=== PATIENT | female | born 1955 | race Caucasian/White ===

== ENCOUNTER 2017-09-02 16:35 | Emergency (ER) | payer SELFPAY ==
[~2017-09-02 16:35] MED LIST: CITA-48 PO; CYAN1000P SQ; CYCL1PAK PO; HYDR-3129 PO; LISI-363 PO; NEUR300C PO; TEMA15 PO; VITA400D PO
[2017-09-02 16:38] VITALS: BP 150/71; PULSE 83; RESP 14; TEMP 98.4; O2SAT 97
[2017-09-02 18:13] LABS: AUTOMATED NEUTROPHIL # 7.3 TH/MM3 (1.8-7.7); BASOPHIL # 0.1 TH/MM3 (0-0.2); EOSINOPHIL # 0.2 TH/MM3 (0-0.4); EOSINOPHIL % 1.9 % (0.0-4.0); HEMATOCRIT 41.9 % (35.0-46.0); HEMO FLAGS DIFF FINAL; LYMPH % 25.6 % (9.0-44.0); LYMPHOCYTE # 2.9 TH/MM3 (1.0-4.8); MEAN CELL VOLUME 89.3 FL (80.0-100.0); MEAN CORPUSCULAR HEMOGLOBIN 30.1 PG (27.0-34.0); MEAN CORPUSCULAR HGB CONC 33.7 % (32.0-36.0); MONO % 5.9 % (0.0-8.0); NEUT % 65.6 % (16.0-70.0); PLATELET COUNT 275 TH/MM3 (150-450); RED CELL DISTRIBUTION WIDTH 14.1 % (11.6-17.2); WHITE BLOOD COUNT 11.2 TH/MM3 (4.0-11.0)
[2017-09-02 18:19] LABS: BLOOD, URINE NEG (NEG); GLUCOSE,URINE NEG (NEG); KETONE, URINE NEG (NEG); NITRITE,URINE NEG (NEG); URINE COLOR LIGHT-YELLOW (YELLW/STRAW)
[2017-09-02 18:21] LABS: COMMENT (UR) CULT NOT INDICATED; CULTURE IF INDICATED CULT NOT INDICATED
[2017-09-02 18:23] LABS: ANION GAP 4 MEQ/L (5-15); BICARBONATE 31.7 MEQ/L (21.0-32.0); BLOOD UREA NITROGEN 8 MG/DL (7-18); CHLORIDE 95 MEQ/L (98-107); GLOMERULAR FILTRATION RATE 84 ML/MIN (>89); SODIUM (NA) 131 MEQ/L (136-145)
[2017-09-02 18:24] LABS: ALCOHOL LESS THAN 3 MG/DL (0-5)
--- NOTE | 2017-09-02 19:34 | PD ---
HPI Chief Complaint: Depression Time Seen by Provider: 19:33 Travel History International Travel<30 days: No Contact w/Intl Traveler<30days: No Traveled to known affect area: No History of Present Illness HPI 61-year-old female presents to the emergency department for complaint of worsening depression over the past 3 weeks. She takes Citalopram for her depression and has been compliant. She's been following with her primary care provider in regards to having thoughts of wanting to and he wanted to wean her off the Citalopram and put her on a different medication, but she had worsening of symptoms. She saw her primary care provider today and he recommended for her to be [place] acted ordered to voluntarily come to the ER for psych evaluation. Reports not having thoughts of wanting to kill herself, but is just really depressed and has thoughts of not wanting to live. She does not have a plan. Nadiya has no history of suicide attempt. She denies homicidal ideations. Denies visual or auditory hallucinations. Reports occasional marijuana use. Denies alcohol use. Reports insomnia and decreased appetite. Depression is worse in the mornings because she is alone while her is at work. No known relieving factors. Primary care provider is Dr. Thompson. She has followup appointment with psychiatrist scheduled October 02. Has no emergent medical complaints. Denies chest pain, shortness of breath, abdominal pain, nausea, vomiting. Denies recent illness. Allergies to pregabalin. Has no other medical complaints. No other modifying factors or associated signs and symptoms. PFSH Past Medical History Cancer: No Cardiovascular Problems: No Diabetes: No Endocrine: Yes Genitourinary: No Hepatitis: No Hiatal Hernia: No Immune Disorder: No Musculoskeletal: Yes (ARTHRITIS; NECK AND BACK PAIN ; FIBROMYALGIA) Neurologic: Yes (SP. STENOSIS, TRANSIENT NEUROPATHY ARMS/ HANDS) Psychiatric: Yes (CLAUSTRAPHOBIA) Reproductive: No Respiratory: No Thyroid Disease: Yes (NODULAR (TO BE BX'D 10/03)) Past Surgical History Abdominal Surgery: Yes (APPY) AICD: No Body Medical Devices: CERVICAL HARDWARE; MARKER RT BREAST Joint Replacement: No Oral Surgery: Yes (T&A - CHILDHOOD) Pacemaker: No Social History Tobacco Use: No Substance Use: Yes (MARIJUANA) Allergies-Medications (Allergen,Severity, Reaction): Coded Allergies: pregabalin (Unverified Allergy, Mild, 09/02/17) atorvastatin (Verified Allergy, Unknown, 09/02/17) Reported Meds & Prescriptions Reported Meds & Active Scripts Active Reported Soma (Carisoprodol) 350 Mg Tab 350 Mg PO HS PRN Zolpidem (Zolpidem Tartrate) 10 Mg Tab 10 Mg PO HS PRN Cyanocobalamin Inj (Cyanocobalamin) 1,000 Mcg/Ml Inj 1,000 Mcg IM EVERY OTHER WEEK Oxycodone (Oxycodone HCl) 20 Mg Tab 20 Mg PO Q4HR PRN Citalopram (Citalopram Hydrobromide) 40 Mg Tab 40 Mg PO DAILY Alprazolam 0.25 Mg Tab 0.25 Mg PO Q12HR PRN Vitamin D-1000 (Cholecalciferol) 1,000 Unit Tab 2,000 Units PO DAILY Review of Systems Except as stated in HPI: all other systems reviewed are Neg Physical Exam Narrative GENERAL: Well-nourished, well-developed female patient, in no acute distress SKIN: Warm and dry. HEAD: Atraumatic. Normocephalic. EYES: Pupils equal and round. ENT: Mucosa pink and moist. NECK: Supple. Trachea midline. CARDIOVASCULAR: Regular rate and rhythm. No murmur appreciated. RESPIRATORY: No accessory muscle use. Clear to auscultation. Breath sounds equal bilaterally. GASTROINTESTINAL: Abdomen soft, non-tender, nondistended. Hepatic and splenic margins not palpable. Bowel sounds are active 4 quadrants. MUSCULOSKELETAL: No obvious deformities. No clubbing. No cyanosis. No edema. BACK: No CVA tenderness. NEUROLOGICAL: Awake and alert. Oriented 3. No obvious cranial nerve deficits. Motor grossly within normal limits. Normal speech. Moves all extremities. 5/5 strength to all extremities. PSYCHIATRIC: No delusional thought processes. No hallucinations. Data Data Last Documented VS Vital Signs Date Time Temp Pulse Resp B/P (MAP) Pulse Ox O2 Delivery O2 Flow Rate FiO2 09/02/17 16:38 98.4 83 14 150/71 (97) 97 Orders Orders Complete Blood Count With Diff (09/02/17 17:01) Basic Metabolic Panel (Bmp) (09/02/17 17:01) Urinalysis - C+S If Indicated (09/02/17 17:01) Psych Screen (09/02/17 17:) Drug Screen, Random Urine (09/02/17 17:01) Alcohol (Ethanol) (09/02/17 17:01) Ed Discharge Order (09/02/17 20:49) Labs Laboratory Tests Test 09/02/17 17:45 White Blood Count 11.2 TH/MM3 Red Blood Count 4.70 MIL/MM3 Hemoglobin 14.1 GM/DL Hematocrit 41.9 % Mean Corpuscular Volume 89.3 FL Mean Corpuscular Hemoglobin 30.1 PG Mean Corpuscular Hemoglobin Concent 33.7 % Red Cell Distribution Width 14.1 % Platelet Count 275 TH/MM3 Mean Platelet Volume 9.3 FL Neutrophils (%) (Auto) 65.6 % Lymphocytes (%) (Auto) 25.6 % Monocytes (%) (Auto) 5.9 % Eosinophils (%) (Auto) 1.9 % Basophils (%) (Auto) 1.0 % Neutrophils # (Auto) 7.3 TH/MM3 Lymphocytes # (Auto) 2.9 TH/MM3 Monocytes # (Auto) 0.7 TH/MM3 Eosinophils # (Auto) 0.2 TH/MM3 Basophils # (Auto) 0.1 TH/MM3 CBC Comment DIFF FINAL Differential Comment Urine Color LIGHT-YELLOW Urine Turbidity CLEAR Urine pH 6.0 Urine Specific [place] 1.003 Urine Protein NEG mg/dL Urine Glucose (UA) NEG mg/dL Urine Ketones NEG mg/dL Urine Occult Blood NEG Urine Nitrite NEG Urine Bilirubin NEG Urine Urobilinogen LESS THAN 2.0 MG/DL Urine Leukocyte Esterase NEG Urine RBC 1 /hpf Urine WBC 1 /hpf Microscopic Urinalysis Comment CULT NOT INDICATED Blood Urea Nitrogen 8 MG/DL Creatinine 0.71 MG/DL Random Glucose 112 MG/DL Calcium Level 8.9 MG/DL Sodium Level 131 MEQ/L Potassium Level 4.0 MEQ/L Chloride Level 95 MEQ/L Carbon Dioxide Level 31.7 MEQ/L Anion Gap 4 MEQ/L Estimat Glomerular Filtration Rate 84 ML/MIN Urine Opiates Screen NEG Urine Barbiturates Screen NEG Urine Amphetamines Screen NEG Urine Benzodiazepines Screen POS Urine Cocaine Screen NEG Urine Cannabinoids Screen POS Ethyl Alcohol Level LESS THAN 3 MG/DL MDM Medical Decision Making Medical Screen Exam Complete: Yes Emergency Medical Condition: Yes Medical Record Reviewed: Yes Differential Diagnosis Depression, suicidal thoughts, medical clearance for psych evaluation Narrative Course 1932: CBC unremarkable. BMP unremarkable. Positive for benzodiazepine and cannabinoids. Urinalysis without signs of infection. Patient presents voluntarily. Physical examination and vital signs are essentially unremarkable. Patient has no medical complaints to report. Psych screen has been ordered. If the laboratory results are unremarkable, the patient will be medically cleared for psychiatric evaluation and disposition. 2049: Patient was screened by the psych screener and he agrees the patient is stable for discharge. [facility] psychology intern screener, has evaluated the patient and the patient will be discharged home. Patient contracts safety to me and the . Denies suicidal or homicidal ideations. Patient will be provided community resource packet to [facility] for follow-up. I spoke with the patient' s , who is at the bedside, and he feels comfortable with the patient going home. Has friends and family for support. Patient has a follow-up appointment with psychiatry on October 02 and will try to get an earlier appointment. Patient has close follow-up with her primary care provider. Patient was medically cleared by me prior to psych screening. Patient has been evaluated by psychiatry and and is now cleared for discharge. Diagnosis Primary Impression: Depression Qualified Codes: F32.9 - Major depressive disorder, single episode, unspecified Referrals: [facility] (Out patient) Primary Care Physician Psychiatrist Rashe[facility] Patient Instructions: Depression (ED), General Instructions Additional Instructions: Continue medications as prescribed Contract safety to your self and others Follow-up with psychiatry Follow-up with primary care provider Follow-up with Rishabh Hodges Return to the emergency department immediately with worsening of symptoms Med/Other Pt SpecificInfo: No Change to Meds, No Meds Exist/No RX given Disposition: 01 DISCHARGE HOME Condition: Stable Arline Ferguson Sep 02, 2017 19:34
[2017-09-02] MEDS ORDERED: OXYC-396 PO (20:08)
[2017-09-02] MEDS ORDERED: SOMA350T PO (20:08)
[2017-09-02] MEDS ORDERED: CYAN1000P IM (20:08)
[2017-09-02] MEDS ORDERED: CITA40TA4 PO (20:08)
[2017-09-02] MEDS ORDERED: ALPR0.25 PO (20:08)
[2017-09-02] MEDS ORDERED: ZOLP10TA3 PO (20:08)
[2017-09-02] MEDS ORDERED: VITA1000 PO (20:08)
== END 2017-09-02 21:38 | disposition home or self-care (01) ==
LOC: NEPD 16:35
DX: F32.9 Major depressive disorder, single episode, unspecified (principal); F12.90 Cannabis use, unspecified, uncomplicated; M19.90 Unspecified osteoarthritis, unspecified site; M79.7 Fibromyalgia; G62.9 Polyneuropathy, unspecified; Z79.899 Other long term (current) drug therapy; Z88.8 Allergy status to other drugs, medicaments and biological substances
CPT/HCPCS: 80048; 80307; 81001; 85025; 99284